=== PATIENT | male | born 1995 ===

== ENCOUNTER 2021-06-18 16:36 | Emergency (ER) | payer MEDICAID, OTHER ==
[~2021-06-18] VITALS: Ht 180.3 cm; Wt 63.5 kg
[2021-06-18 16:41] VITALS: BP 124/76
== END 2021-06-18 20:27 | disposition left against medical advice (07) ==
LOC: ER 16:36
DX: H57.89 Other specified disorders of eye and adnexa (principal); Z53.21 Procedure and treatment not carried out due to patient leaving prior to being seen by health care provider